=== PATIENT | female | born 1980 | race Caucasian/White ===

== ENCOUNTER 2018-04-24 18:15 | Observation (INO) ==
[2018-04-24] MEDS ORDERED: Isovue-370 500 ML BOTTLE IVP ONE (18:43)
--- NOTE | 2018-04-24 19:07 | Emergency Department Note ---
Disposition Clinical Impression: Dizziness Disposition: Admitted As Inpatient Condition: Fair Referrals: NONE,PCP [Primary Care Provider] - Forms: ED Satisfaction Letter Time of Disposition: 20:20 General Adult HPI - General Chief complaint: ED Dizziness Stated complaint: dizziness Time Seen by Provider: 04/24/18 18:21 Source: patient Limitations: no limitations - History of Present Illness Pain Scale: 0 - Related Data Previous Rx's Medication Instructions Recorded Ondansetron ODT [Zofran ODT] 4 mg SL Q8HR PRN #20 tab.rapdis 05/06/15 Azithromycin [Zithromax] 1 applic PO DAILY #6 tablet 06/25/15 Ondansetron [Zofran ODT] 8 mg SL TID PRN #12 tab.rapdis 06/25/15 ALPRAZolam [Xanax 0.5 MG Tablet] 0.5 mg PO TID PRN #10 tablet 01/23/16 HydrOXYzine Pamoate [Vistaril] 50 mg PO Q6HR #24 capsule 04/30/16 Sulfamethoxazole/Trimeth DS 1 each PO BID 7 Days #14 tablet 11/23/17 [Bactrim DS] cephALEXin [Keflex] 500 mg PO BID #14 capsule 11/23/17 Allergies Allergy/AdvReac Type Severity Reaction Status Date / Time tramadol Allergy See Verified 12/07/17 18:05 Comments acetaminophen [From Percocet] AdvReac Vomiting Verified 12/07/17 18:05 hydrocodone [From Vicodin] AdvReac Vomiting Verified 12/07/17 18:05 oxycodone [From Percocet] AdvReac Vomiting Verified 12/07/17 18:05 Penicillins AdvReac Vomiting Verified 12/07/17 18:05 Past Medical History - Past Medical History Medical history: Reports: CVA, diabetes, other Psychiatric history: Reports: anxiety, panic disorder ENGROSSER history: Reports: polycystic ovary syndrome - Social History Smoking Status: Current every day smoker Smokeless Tobacco Status: No Alcohol use: Reports: none Drug use: Reports: none Physical Exam - General Limitations: no limitations General appearance: alert, in no apparent distress Course Vital Signs Temperature 98.1 F 04/24/18 18:18 Pulse Rate 99 04/24/18 18:18 Respiratory Rate 16 04/24/18 18:18 Blood Pressure 124/78 04/24/18 18:18 O2 Sat by Pulse Oximetry 98 04/24/18 18:18 Temperature 98.1 F 04/24/18 18:18 Pulse Rate 85 04/24/18 19:40 Respiratory Rate 18 04/24/18 19:40 Blood Pressure 133/76 04/24/18 19:40 O2 Sat by Pulse Oximetry 96 04/24/18 19:40 Oxygen Delivery Oxygen Delivery Room Air Medical Decision Making - Lab Data Result diagrams: 04/24/18 19:01 04/24/18 19:01 Lab Results 04/24/18 04/24/18 04/24/18 Range/Units 19:01 19:01 19:01 WBC 13.0 H (4.3-11.1) K/mcL RBC 4.95 (3.82-4.97) M/mcL Hgb 14.7 (11.5-15.4) g/dL Hct 43.2 (35.3-44.9) % MCV 87.3 (83.0-100.0) fL MCH 29.7 (28.0-33.3) pg MCHC 34.0 (31.6-35.5) g/dL RDW 13.4 (11.5-14.5) % Plt Count 347 (140-400) K/mcL MPV 10.9 (9.4-12.4) fL Immature Gran % 0.4 (0-4) % Seg Neutrophils % 60.1 % Lymphocytes % 29.9 % Monocytes % 6.8 % Eosinophils % 2.3 % Basophils % 0.5 % Neutrophils # 7.8 (1.6-8.9) K/mcL Lymphocytes # 3.9 (0.6-4.6) K/mcL Monocytes # 0.9 (0.0-1.3) K/mcL Eosinophils # 0.3 (0.0-0.6) K/mcL Basophils # 0.1 (0.0-0.2) K/mcL VBG pH (7.32-7.42) pH Units VBG pCO2 (41-51) mmHg VBG pO2 (25-50) mmHg VBG HCO3 (21-27) mEq/L Sodium 134 L (136-145) mEq/L Potassium 3.7 (3.5-5.1) mEq/L Chloride 103 (98-107) mEq/L Carbon Dioxide 24 (23-29) mEq/L BUN 10 (6-20) mg/dL Creatinine 0.76 (0.60-1.20) mg/dL Est GFR ( Amer) > 60 (> 60) Est GFR (Non-Af Amer) > 60 (> 60) BUN/Creatinine Ratio 13 (6-26) Glucose 261 H (70-105) mg/dL Calculated Osmolality 286 (280-300) Calcium 9.1 (8.6-10.3) mg/dL Troponin I < 0.03 (< 0.04) ng/mL Beta-Hydroxybutyric Acd 0.16 (0.02-0.27) mmol/L Urine Color (Yellow) Urine Clarity (Clear) Urine pH (5.0-8.0) pH Units Ur Specific [place] (1.010-1.025) Urine Protein (Neg-Trace) mg/dL Urine Glucose (UA) (Normal) mg/dL Urine Ketones (Negative) mg/dL Urine Blood (Negative) Urine Nitrite (Negative) Urine Bilirubin (Negative) Urine Urobilinogen (Normal) mg/dL Ur Leukocyte Esterase (Negative) Ur Culture Indicated? (NO) Urine Test (Negative) 04/24/18 04/24/18 04/24/18 Range/Units 19:26 19:38 19:38 WBC (4.3-11.1) K/mcL RBC (3.82-4.97) M/mcL Hgb (11.5-15.4) g/dL Hct (35.3-44.9) % MCV (83.0-100.0) fL MCH (28.0-33.3) pg MCHC (31.6-35.5) g/dL RDW (11.5-14.5) % Plt Count (140-400) K/mcL MPV (9.4-12.4) fL Immature Gran % (0-4) % Seg Neutrophils % % Lymphocytes % % Monocytes % % Eosinophils % % Basophils % % Neutrophils # (1.6-8.9) K/mcL Lymphocytes # (0.6-4.6) K/mcL Monocytes # (0.0-1.3) K/mcL Eosinophils # (0.0-0.6) K/mcL Basophils # (0.0-0.2) K/mcL VBG pH 7.37 (7.32-7.42) pH Units VBG pCO2 45 (41-51) mmHg VBG pO2 78 H (25-50) mmHg VBG HCO3 26 (21-27) mEq/L Sodium (136-145) mEq/L Potassium (3.5-5.1) mEq/L Chloride (98-107) mEq/L Carbon Dioxide (23-29) mEq/L BUN (6-20) mg/dL Creatinine (0.60-1.20) mg/dL Est GFR ( Amer) (> 60) Est GFR (Non-Af Amer) (> 60) BUN/Creatinine Ratio (6-26) Glucose (70-105) mg/dL Calculated Osmolality (280-300) Calcium (8.6-10.3) mg/dL Troponin I (< 0.04) ng/mL Beta-Hydroxybutyric Acd (0.02-0.27) mmol/L Urine Color Yellow (Yellow) Urine Clarity Clear (Clear) Urine pH 6.0 (5.0-8.0) pH Units Ur Specific [place] > 1.030 H (1.010-1.025) Urine Protein Negative (Neg-Trace) mg/dL Urine Glucose (UA) >=1000 H (Normal) mg/dL Urine Ketones Negative (Negative) mg/dL Urine Blood Negative (Negative) Urine Nitrite Negative (Negative) Urine Bilirubin Negative (Negative) Urine Urobilinogen Normal (Normal) mg/dL Ur Leukocyte Esterase Negative (Negative) Ur Culture Indicated? NO (NO) Urine Test Negative (Negative) Attestation Statement - Attestation Attestation: I, Bharath Carrillo DO, examined this patient [id number] and my medical decision-making was reviewed with Dr. Daniela Capps, Resident Physician. I agree with the documented findings, disposition and treatment plan as described except to the extent set forth below. Please see my progress notes for details. 37-year-old female presents emergency room for evaluation of dizziness. Patient has had these symptoms for possibly 7 days. Patient does have a history of a previous cerebellar stroke multiple years ago. Patient denies any new changes or symptoms at this time. The onset of the dizziness came on acutely at home. She denies any chest pain, shortness breath, headache, vision changes. Denies any nausea vomiting or diarrhea. Her main complaint is dizziness at this time. Vital signs are reviewed and are stable on presentation. Symptoms make the patient will outside the window of stroke evaluation at this point. She does not have any visible signs of ataxia with ambulation but she does have the describes symptoms of dizziness. Physical exam shows a well-appearing female. Head is atraumatic. Pupils are equal round reactive. Extra ocular muscles are intact. Oropharynx is patent. Trachea is midline. Lungs are clear. Heart is regular. Abdomen is soft. Neurologic evaluation shows no signs of facial asymmetry. She has no signs of double vision or diplopia at this time. Pupils are reactive. She has normal sensation in the upper and lower extremities. No visible signs of cerebellar dysfunction on physical exam at this point. Because of the symptom presentation the time frame the patient will have CT imaging of the head and the neck with angiography. Labs including CBC chemistry beta hydroxybutyric acid VBG will be added on as well considering the patient has poor controlled diabetic. Fluids nausea medication meclizine will be given. Urinalysis and urine test be collected as well. Disposition pending full workup and treatment course. Symptoms could be cerebellar in nature versus possible diabetic-related issue causing the dizziness. Symptomatic control will be established. Patient will monitor closely. See detailed documentation of the physical exam, medical intervention, medical decision-making and disposition in the resident physician's note. No critical care pad the patient's treatment course at this time. 1999 CT angiography confirms previous cerebellar stroke. No vascular significant lesion is noted. Patient is otherwise clinically stable. Symptoms have not resolved with the meclizine here this time. Labs otherwise unremarkable. Patient will be admitted for MRI evaluation and further symptomatic control with the neurology. Ativan was given secondary to anxiety. Accu-Chek was elevated 300. Labs do not show any acute signs of diabetic ketoacidosis. Hospitalist reviewed the case at length. No other acute recommendations or concerns this time. Patient will be admitted for symptomatically control and continue neur ologic evaluation.
[2018-04-24 19:21] LABS: Basophils # 0.1 K/mcL (0.0-0.2); Basophils % 0.5 %; Eosinophils # 0.3 K/mcL (0.0-0.6); Eosinophils % 2.3 %; Hematocrit 43.2 % (35.3-44.9); Hemoglobin 14.7 g/dL (11.5-15.4); Immature Granulocytes % 0.4 % (0-4); Lymphocytes # 3.9 K/mcL (0.6-4.6); Lymphocytes % 29.9 %; Mean Corpuscular Hemoglobin 29.7 pg (28.0-33.3); Mean Corpuscular Volume 87.3 fL (83.0-100.0); Mean Platelet Volume 10.9 fL (9.4-12.4); Monocytes # 0.9 K/mcL (0.0-1.3); Monocytes % 6.8 %; Neutrophils # 7.8 K/mcL (1.6-8.9); Platelet Count 347 K/mcL (140-400); Red Blood Count 4.95 M/mcL (3.82-4.97); Red Cell Distribution Width 13.4 % (11.5-14.5); Segmented Neutrophils % 60.1 %
[2018-04-24 19:31] LABS: VBG HCO3 26 mEq/L (21-27); VBG PCO2 45 mmHg (41-51); VBG PH 7.37 pH Units (7.32-7.42); VBG PO2 78 mmHg (25-50)
[2018-04-24 19:42] LABS: BUN/Creatinine Ratio 13 (6-26); Blood Urea Nitrogen 10 mg/dL (6-20); Calcium 9.1 mg/dL (8.6-10.3); Carbon Dioxide 24 mEq/L (23-29); Chloride 103 mEq/L (98-107); Glucose 261 mg/dL (70-105); Osmolality,Calculated 286 (280-300); Potassium 3.7 mEq/L (3.5-5.1); Sodium 134 mEq/L (136-145); Troponin I < 0.03 ng/mL (< 0.04); eGFR For Non-African Americans > 60 (> 60)
[2018-04-24 19:58] LABS: Bilirubin,Urine Negative (Negative); Blood,Urine Negative (Negative); Clarity,Urine Clear (Clear); Color,Urine Yellow (Yellow); Glucose,Urine (UA) >=1000 mg/dL (Normal); Ketones,Urine Negative (Negative); Leukocyte Esterase,Urine Negative (Negative); Nitrite,Urine Negative (Negative); Protein,Urine Negative (Neg-Trace); Specific Gravity,Urine > 1.030 (1.010-1.025); Urobilinogen,Urine Normal (Normal)
[2018-04-24] MEDS ORDERED: *HR* LORazepam 2 MG/ML VIAL IVP ONE (20:01)
--- NOTE | 2018-04-24 20:13 | Emergency Department Note ---
Disposition Clinical Impression: Dizziness Disposition: Admitted As Inpatient Condition: Fair Referrals: NONE,PCP [Primary Care Provider] - Forms: ED Satisfaction Letter Time of Disposition: 20:40 General Adult HPI - General Chief complaint: ED Dizziness Stated complaint: dizziness Time Seen by Provider: 04/24/18 18:21 Source: patient Mode of arrival: ambulatory Limitations: no limitations Nursing Notes Reviewed: Yes Vital Signs Reviewed: Yes - History of Present Illness HPI Narrative: 37-year-old female with significant past medical history of type 2 diabetes and previous stroke currently taking a daily aspirin presenting to the emergency department chief complaint of dizziness. Patient states symptoms started approximately 1 week ago. No falls or head trauma. He denies any headache, chest pain, shortness of breath or abdominal pain. She states the symptoms started with some vague dizziness on and off. And then over the past 2 days she started having worsening dizziness and blurred vision. Patient was concerned s he had a previous stroke and her only symptom at that time was dizziness. Patient denies any weakness or loss of sensation in any extremity. Pain Scale: 0 - Related Data Previous Rx's Medication Instructions Recorded Ondansetron ODT [Zofran ODT] 4 mg SL Q8HR PRN #20 tab.rapdis 05/06/15 Azithromycin [Zithromax] 1 applic PO DAILY #6 tablet 06/25/15 Ondansetron [Zofran ODT] 8 mg SL TID PRN #12 tab.rapdis 06/25/15 ALPRAZolam [Xanax 0.5 MG Tablet] 0.5 mg PO TID PRN #10 tablet 01/23/16 HydrOXYzine Pamoate [Vistaril] 50 mg PO Q6HR #24 capsule 04/30/16 Sulfamethoxazole/Trimeth DS 1 each PO BID 7 Days #14 tablet 11/23/17 [Bactrim DS] cephALEXin [Keflex] 500 mg PO BID #14 capsule 11/23/17 Allergies Allergy/AdvReac Type Severity Reaction Status Date / Time tramadol Allergy See Verified 12/07/17 18:05 Comments acetaminophen [From Percocet] AdvReac Vomiting Verified 12/07/17 18:05 hydrocodone [From Vicodin] AdvReac Vomiting Verified 12/07/17 18:05 oxycodone [From Percocet] AdvReac Vomiting Verified 12/07/17 18:05 Penicillins AdvReac Vomiting Verified 12/07/17 18:05 All systems ED: reviewed and negative except as stated. Constitutional: Denies: fever Eyes: Reports: vision change ENT ED: Reports: as per HPI Cardiovascular: Reports: palpitations Respiratory: Denies: dyspnea Gastrointestinal: Denies: abdominal pain Genitourinary: Reports: as per HPI Musculoskeletal: Reports: as per HPI Integumentary: Reports: as per HPI Neurological: Reports: vertigo Psychiatric: Reports: anxiety Endocrine: Reports: as per HPI Hematological/Lymphatic: Reports: as per HPI Allergic/Immunologic: Reports: as per HPI Past Medical History - Past Medical History Attestation: Yes The following information was validated with the patient. Medical history: Reports: CVA, diabetes, other Psychiatric history: Reports: anxiety, panic disorder PEGGER history: Reports: polycystic ovary syndrome - Social History Smoking Status: Current every day smoker Smokeless Tobacco Status: No Alcohol use: Reports: none Drug use: Reports: none Physical Exam - General Limitations: no limitations General appearance: alert, in no apparent distress - Head Head exam: atraumatic, normocephalic, normal inspection - Eye Eye exam: Present: EOMI, nystagmus (right sided). Absent: scleral icterus, conjunctival injection - ENT ENT exam: mucous membranes moist - Neck Neck exam: Present: full ROM - Chest Chest inspection: Present: symmetric chest wall rise - Respiratory Respiratory exam: Present: normal lung sounds bilaterally. Absent: respiratory distress, wheezes - Cardiovascular Cardiovascular exam: Present: regular rate, normal rhythm, normal heart sounds - Abdominal Exam Abdominal exam: Present: soft, Non-Tender. Absent: distention, guarding, rebound - Extremities Exam Extremities exam: Present: full ROM - Neurological Exam Neurological exam: Present: alert, oriented X3, other (finger to nose WNL). Absent: motor sensory deficit - Psychiatric Psychiatric exam: Present: normal affect, normal mood - Skin Skin exam: Present: warm, intact Course Course Narrative: 37-year-old female presenting with dizziness. In the room patient is alert and oriented 3 and hemodynamically stable. Patient's symptoms have been for approximately 1 week therefore patient out of stroke window at this time. On exam patient has right-sided horizontal nystagmus but her finger to nose is within normal limits. We will obtain a CTA of the head and neck along with basic laboratory analysis. Patient also stated she was not taking any of her diabetes medications therefore we will also obtain a VBG and a beta hydroxybutyric acid to rule out DKA. Disposition will most likely be admission versus transfer pending evaluation. Patient agrees with this plan. - Reevaluation(s) Reevaluation #1: Patient's laboratory analysis shows hyperglycemia but otherwise within normal limits. Urine does not show any infection. CTA of the head and neck shows a remote infarct of the right cerebellar exam. Due to patient's continued dizziness and concern for stroke we will plan to admit the patient for further evaluation. Patient is alert and oriented 3 and hemodynamically stable. She agrees with this plan. I spoke with the hospitalist operations mgr Dr. Osman who states he would like me to talk to neurology before he accepts the patient. I spoke with the neurologist operations mgr Dr. Burns who agrees to consult on the patient and agrees that the patient is acceptable for this facility. At this time patient will be admitted to the hospitalist. Vital Signs Temperature 98.1 F 04/24/18 18:18 Pulse Rate 99 04/24/18 18:18 Respiratory Rate 16 04/24/18 18:18 Blood Pressure 124/78 04/24/18 18:18 O2 Sat by Pulse Oximetry 98 04/24/18 18:18 Temperature 98.1 F 04/24/18 18:18 Pulse Rate 86 04/24/18 20:15 Respiratory Rate 14 04/24/18 20:15 Blood Pressure 128/90 04/24/18 20:15 O2 Sat by Pulse Oximetry 100 04/24/18 20:15 Oxygen Delivery Oxygen Delivery Room Air Medical Decision Making - Lab Data Result diagrams: 04/24/18 19:01 04/24/18 19:01 Lab Results 04/24/18 04/24/18 04/24/18 Range/Units 19:01 19:01 19:01 WBC 13.0 H (4.3-11.1) K/mcL RBC 4.95 (3.82-4.97) M/mcL Hgb 14.7 (11.5-15.4) g/dL Hct 43.2 (35.3-44.9) % MCV 87.3 (83.0-100.0) fL MCH 29.7 (28.0-33.3) pg MCHC 34.0 (31.6-35.5) g/dL RDW 13.4 (11.5-14.5) % Plt Count 347 (140-400) K/mcL MPV 10.9 (9.4-12.4) fL Immature Gran % 0.4 (0-4) % Seg Neutrophils % 60.1 % Lymphocytes % 29.9 % Monocytes % 6.8 % Eosinophils % 2.3 % Basophils % 0.5 % Neutrophils # 7.8 (1.6-8.9) K/mcL Lymphocytes # 3.9 (0.6-4.6) K/mcL Monocytes # 0.9 (0.0-1.3) K/mcL Eosinophils # 0.3 (0.0-0.6) K/mcL Basophils # 0.1 (0.0-0.2) K/mcL VBG pH (7.32-7.42) pH Units VBG pCO2 (41-51) mmHg VBG pO2 (25-50) mmHg VBG HCO3 (21-27) mEq/L Sodium 134 L (136-145) mEq/L Potassium 3.7 (3.5-5.1) mEq/L Chloride 103 (98-107) mEq/L Carbon Dioxide 24 (23-29) mEq/L BUN 10 (6-20) mg/dL Creatinine 0.76 (0.60-1.20) mg/dL Est GFR ( Amer) > 60 (> 60) Est GFR (Non-Af Amer) > 60 (> 60) BUN/Creatinine Ratio 13 (6-26) Glucose 261 H (70-105) mg/dL Calculated Osmolality 286 (280-300) Calcium 9.1 (8.6-10.3) mg/dL Troponin I < 0.03 (< 0.04) ng/mL Beta-Hydroxybutyric Acd 0.16 (0.02-0.27) mmol/L Urine Color (Yellow) Urine Clarity (Clear) Urine pH (5.0-8.0) pH Units Ur Specific [place] (1.010-1.025) Urine Protein (Neg-Trace) mg/dL Urine Glucose (UA) (Normal) mg/dL Urine Ketones (Negative) mg/dL Urine Blood (Negative) Urine Nitrite (Negative) Urine Bilirubin (Negative) Urine Urobilinogen (Normal) mg/dL Ur Leukocyte Esterase (Negative) Ur Culture Indicated? (NO) Urine Test (Negative) 04/24/18 04/24/18 04/24/18 Range/Units 19:26 19:38 19:38 WBC (4.3-11.1) K/mcL RBC (3.82-4.97) M/mcL Hgb (11.5-15.4) g/dL Hct (35.3-44.9) % MCV (83.0-100.0) fL MCH (28.0-33.3) pg MCHC (31.6-35.5) g/dL RDW (11.5-14.5) % Plt Count (140-400) K/mcL MPV (9.4-12.4) fL Immature Gran % (0-4) % Seg Neutrophils % % Lymphocytes % % Monocytes % % Eosinophils % % Basophils % % Neutrophils # (1.6-8.9) K/mcL Lymphocytes # (0.6-4.6) K/mcL Monocytes # (0.0-1.3) K/mcL Eosinophils # (0.0-0.6) K/mcL Basophils # (0.0-0.2) K/mcL VBG pH 7.37 (7.32-7.42) pH Units VBG pCO2 45 (41-51) mmHg VBG pO2 78 H (25-50) mmHg VBG HCO3 26 (21-27) mEq/L Sodium (136-145) mEq/L Potassium (3.5-5.1) mEq/L Chloride (98-107) mEq/L Carbon Dioxide (23-29) mEq/L BUN (6-20) mg/dL Creatinine (0.60-1.20) mg/dL Est GFR ( Amer) (> 60) Est GFR (Non-Af Amer) (> 60) BUN/Creatinine Ratio (6-26) Glucose (70-105) mg/dL Calculated Osmolality (280-300) Calcium (8.6-10.3) mg/dL Troponin I (< 0.04) ng/mL Beta-Hydroxybutyric Acd (0.02-0.27) mmol/L Urine Color Yellow (Yellow) Urine Clarity Clear (Clear) Urine pH 6.0 (5.0-8.0) pH Units Ur Specific [place] > 1.030 H (1.010-1.025) Urine Protein Negative (Neg-Trace) mg/dL Urine Glucose (UA) >=1000 H (Normal) mg/dL Urine Ketones Negative (Negative) mg/dL Urine Blood Negative (Negative) Urine Nitrite Negative (Negative) Urine Bilirubin Negative (Negative) Urine Urobilinogen Normal (Normal) mg/dL Ur Leukocyte Esterase Negative (Negative) Ur Culture Indicated? NO (NO) Urine Test Negative (Negative) - EKG Data EKG #1 EKG attestation: Yes I reviewed and interpreted this EKG. EKG results narrative: Sinus rhythm. 87 beats for minute. [place] interval 155, QRS 96, QTC 433. No sign of acute ST segment elevation or ischemia. Compared to previous EKG completed on 04/29/2017. No Significant changes Attestation Statement - Attestation Attestation: I, Bharath Carrillo DO, examined this patient [id number] and my medical decision-making was reviewed with Dr. Daniela Capps, Resident Physician. I agree with the documented findings, disposition and treatment plan as described except to the extent set forth below. Please see my progress notes for details.
[2018-04-24] MEDS ORDERED: Dextrose Gel 15 GM/37.5 ML TUBE PO PRN ×2 (23:28)
[2018-04-24] MEDS ORDERED: *HR* Dextrose 50 % in Water (Syg) 50 ML SYRINGE IVP PRN (23:28)
[2018-04-24] MEDS ORDERED: D5% in Water 1,000 ML IVC PRN (23:28)
[2018-04-24] MEDS ORDERED: Naloxone 0.4 MG/ML INJ IVP PRN (23:28)
[2018-04-24] MEDS ORDERED: hydrOXYzine pamoate 25 MG CAPSULE PO PRN (23:37)
[2018-04-25] MEDS: 0.9 % Sodium Chloride w KCl 20 MEQ/1,000 ML MLS IVC SCH ×2 (00:18→11:47)
--- NOTE | 2018-04-25 00:59 | Internal Med History&Physical ---
Date of Encounter: 04/24/18 Time of Encounter: 23:10 Internal Medicine - H&P: HPI Chief complaint: dizziness; ataxia Admitted From: Emergency Dept Plans for Post Hospital Care: Home History of present illness: Ms. Aguila is a 37 year old female who presents to the ER [facility] with complaints of acute onset of dizziness and ataxia. Symptoms started roughly 6-7 days ago. She initially thought this was due to her anxiety and was hopeful that symptoms would resolve. However, symptoms persisted and so she came to ER for further evaluation. Workup in ER was negative including CTA of the head and neck and CT the head. However, she does have history of an old cerebellar stroke, and she did state that her symptoms were similar to her stroke 3 years ago. She was therefore admitted to hospitalist service. I received a call from the ER staff regarding the request for admission. I asked the ER staff to contact neurology and discuss the case with them before I accepted the patient, especially given her history of cerebellar stroke. Neurology was in agreement, and I subsequently accepted the patient for admission. Upon my assessment of the patient, she confirms the above history. However, she states these symptoms are not nearly as severe as they were when she first had her stroke in 2014. She does suffer from anxiety and firmly believes her symptoms were anxiety in nature this current episode. However, symptoms did not improve and persisted, and she then became worried about further extension of an old stroke. She therefore came to the hospital [facility]. She is type II diabetic but has not been any medication for quite some time due to lack of insurance coverage and inability to afford her medication. He glucose in the ER was 261. She denies any hypoglycemic episodes. Upon further questioning, patient states she has had 3 prior episodes of DVT several years ago. Last one was about 5 years ago. Furthermore, her father had recurrent strokes as well. She also smokes. As such, she has multiple risk factors for strokes. I inquired about her DVT history and if she has ever had any kind of hypercoagulable workup. She has never seen a manager pacu in consultation and denies any prior hypercoagulable workup. Regarding her cerebellar stroke, she was life-flighted from our ER to [facility] in [place] in 2014 when that occurred. She does not recall much of that hospital stay. Past Med Surg Social Fam HX - Past Medical History Attestation: Yes The following information was validated with the patient. Source: patient, old records reviewed, obtained from family Medical history: CVA, diabetes Additional medical history: 2015 -- cerebellar stroke. DVT x 3 Psychiatric history: anxiety, panic disorder - Past Surgical History Surgical History: orthopedic, other (carpal tunnel) Additional surgical history: carpal tunnel bilateral. D&C - Social History Smoking Status: Current every day smoker Packs per day: 2 Smokeless Tobacco Status: No Alcohol use: none Drug use: none Occupational status: employed Current living situation: Home, With Family Activity Level: Independent ambulation Recent Out of Country Travel Within the Last 8 Weeks: No - Family History Paternal Grandfather Living Status: Cause of : [place] Hx Family Cardiac Disorders: Yes ([place]) Father Hx Family Cardiac Disorders: Yes (CABG X4) Hx Family Neurologic Disorders: Yes (multiple CVAs) Hx Family Medical Disorders: Yes (DM) Paternal Grandmother Hx Family Medical Disorders: Yes (DM) Internal Medicine - H&P: Meds Aspirin [Lo-Dose Aspirin EC] 81 mg PO DAILY 04/24/18 [History] HydrOXYzine Pamoate [Vistaril] 100 mg PO Q6HR PRN 04/24/18 [History] Allergy/AdvReac Type Severity Reaction Status Date / Time tramadol Allergy See Verified 12/07/17 18:05 Comments acetaminophen [From Percocet] AdvReac Vomiting Verified 12/07/17 18:05 hydrocodone [From Vicodin] AdvReac Vomiting Verified 12/07/17 18:05 oxycodone [From Percocet] AdvReac Vomiting Verified 12/07/17 18:05 Penicillins AdvReac Vomiting Verified 12/07/17 18:05 - Constitutional Constitutional: no chills, no fever(s), no falls, no night sweats - EENT Eyes: no blurry vision, no change in vision Ears: no ear pain, no tinnitus Nose, mouth and throat: no nasal congestion, no sore throat - Cardiovascular Cardiovascular ROS IM: no chest pain, no dyspnea, no dyspnea on exertion, no irregular heart rhythm, no lightheadedness, no paroxysmal nocturnal dyspnea, no syncope - Respiratory Respiratory: no cough, no hemoptysis, no chest congestion, no excessive phlegm production, no change in phlegm color - Gastrointestinal Gastrointestinal: no abdominal pain, no diarrhea, no hematemesis, no hematochezia, no melena, no nausea, no vomiting - Genitourinary Genitourinary: no dysuria, no flank pain, no hematuria - Musculoskeletal Musculoskeletal ROS IM: no arthralgias, no back pain - Integumentary Integumentary IM: no rash, no jaundice - Neurological Neurological ROS: abnormal gait, dizziness, no abnormal speech, no convulsions, no focal weakness, no frequent falls, no headache(s), no numbness, no paresthesias - Psychiatric Psychiatric: anxiety, no depression - Endocrine Endocrine IM: no cold intolerance, no heat intolerance, no polydipsia, no polyuria - Hematologic/Lymphatic Hematologic/Lymphatic: no lymphadenopathy - Allergic/Immunologic Allergic/Immunologic: no GI upset with certain foods - Constitutional Vitals: Temp Pulse Resp BP Pulse Ox 98.2 F 82 16 113/73 95 04/24/18 21:23 04/24/18 21:23 04/24/18 21:23 04/24/18 21:23 04/24/18 21:23 General appearance: Present: cooperative, A&O X 3, pleasant, no acute distress, answers questions appropriately Exam: see below - Head Head exam: Present: atraumatic, normal inspection - Eye Eye exam: Present: EOMI, PERRL. Absent: scleral icterus Pupils: Present: normal accommodation - ENT ENT exam: Present: mucous membranes moist, normal exam, normal oropharynx - Neck Neck exam general surgery: Present: full ROM, supple. Absent: tenderness, nuchal rigidity, thyromegaly - Expanded Neck Exam Neck exam: Absent: carotid bruit - Respiratory Respiratory exam: Present: CTAB. Absent: chest wall tenderness, rales, rhonchi, wheezes - Cardiovascular Cardiovascular exam: Present: RRR, +S1, +S2. Absent: diastolic murmur, systolic murmur - GI/Abdominal GI/Abdominal exam: Present: normal bowel sounds, soft. Absent: hepatomegaly, mass, splenomegaly, tenderness - Extremities Exam Extremities exam: Present: full ROM, normal capillary refill, normal inspection, warm, radial pulses palpable and symmetrical. Absent: calf tenderness, pedal edema, tenderness - Back Exam Back exam: Present: normal inspection. Absent: CVA tenderness (L), CVA tenderness (R) - Neurological Exam Neurological exam: Present: alert, CN II-XII intact, oriented X3, no focal deficits. Absent: facial droop, speech deficit Additional comments: no nystagmus or dizziness reproduced with position changes; normal finger to nose testing - Psychiatric Psychiatric exam: Present: anxious (minimally), normal affect, normal mood. Absent: depressed - Skin Skin exam: Present: dry, intact, warm. Absent: rash Internal Med - H&P Results - Labs CBC & Chem 7: 04/24/18 19:01 04/24/18 19:01 Labs: Short CBC 04/24/18 Range/Units 19:01 WBC 13.0 H (4.3-11.1) K/mcL Hgb 14.7 (11.5-15.4) g/dL Hct 43.2 (35.3-44.9) % Plt Count 347 (140-400) K/mcL Neutrophils # 7.8 (1.6-8.9) K/mcL BMP 04/24/18 19:01 Sodium 134 L Potassium 3.7 Chloride 103 Carbon Dioxide 24 BUN 10 Creatinine 0.76 Glucose 261 H Calcium 9.1 Cardiac Enzymes 04/24/18 Range/Units 19:01 Troponin I < 0.03 (< 0.04) ng/mL Urine 04/24/18 Range/Units 19:38 Urine Color Yellow (Yellow) Urine Clarity Clear (Clear) Urine pH 6.0 (5.0-8.0) pH Units Ur Specific [place] > 1.030 H (1.010-1.025) Urine Protein Negative (Neg-Trace) mg/dL Urine Glucose (UA) >=1000 H (Normal) mg/dL - ABG Interpretation ABG results: 04/24/18 19:26 VBG pH 7.37 VBG pCO2 45 VBG pO2 78 H VBG HCO3 26 - EKG Data -: EKG Interpreted by Myself - EKG Data Prior EKG available for review: no EKG comments: 04/25/18 01:05 NSR; no acute changes - Impressions ITS Impressions Angiography CT 04/24/18 18:43 IMPRESSION: No acute intracranial abnormality. Stable old infarction in the right cerebellar hemisphere. No evidence of acute abnormality or flow-limiting stenosis in the major arteries of the head and neck. Artifacts through the mid to distal right common internal carotid artery. D/ / Devonte Fisher MD / Devonte Fisher MD Interpreting Provider: Devonte Fisher MD Neck CTA 04/24/18 18:43 IMPRESSION: No acute intracranial abnormality. Stable old infarction in the right cerebellar hemisphere. No evidence of acute abnormality or flow-limiting stenosis in the major arteries of the head and neck. Artifacts through the mid to distal right common internal carotid artery. D/ / Devonte Fisher MD / Devonte Fisher MD Interpreting Provider: Devonte Fisher MD - Assessment and plan (1) Dizziness Current Visit: Yes Status: Acute Assessment and plan: 1. Exam and work-up thus far negative. 2. Will complete stroke work-up with MRI, ECHO, and neurology consult. 3. Start Statin, continue ASA. 4. Given history of DVT, needs hypercoagulable work-up. 5. Smoking cessation advised. (2) Old cerebellar infarct without late effect Current Visit: Yes Status: Chronic Assessment and plan: 1. 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 2. Current symptoms concerning. 3. Work-up as above. (3) Recurrent deep vein thrombosis (DVT) Current Visit: Yes Status: Chronic Assessment and plan: 1. Smoking cessation advised. 2. Consult HEM/ONC for hypercoagulable work-up and follow up. 3. 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 (4) Type 2 diabetes mellitus Current Visit: Yes Status: Chronic Assessment and plan: 1. Will start on SSI and monitor glucose closely. 2. Likely start oral regimen upon discharge. Qualifiers: Diabetes mellitus longterm insulin use: without longterm use Diabetes mellitus complication status: without complication Qualified Code(s): E11.9 - Type 2 diabetes mellitus without complications (5) DVT prophylaxis Current Visit: Yes Status: Acute Assessment and plan: 1. Heparin SQ.
[2018-04-25 04:55] LABS: Basophils # 0.1 K/mcL (0.0-0.2); Basophils % 0.6 %; Eosinophils # 0.3 K/mcL (0.0-0.6); Eosinophils % 2.5 %; Hematocrit 43.2 % (35.3-44.9); Hemoglobin 14.5 g/dL (11.5-15.4); Immature Granulocytes % 0.3 % (0-4); Lymphocytes # 4.2 K/mcL (0.6-4.6); Lymphocytes % 40.4 %; Mean Corpuscular HGB Conc 33.6 g/dL (31.6-35.5); Mean Corpuscular Hemoglobin 29.4 pg (28.0-33.3); Mean Corpuscular Volume 87.6 fL (83.0-100.0); Mean Platelet Volume 10.8 fL (9.4-12.4); Monocytes # 0.8 K/mcL (0.0-1.3); Monocytes % 7.4 %; Platelet Count 329 K/mcL (140-400); Red Blood Count 4.93 M/mcL (3.82-4.97); Red Cell Distribution Width 13.4 % (11.5-14.5); Segmented Neutrophils % 48.8 %
[2018-04-25 05:01] LABS: Prothrombin Time 11.4 Seconds (9.4-12.1)
[2018-04-25 05:04] LABS: Activated Partial Thrombo Time 33.5 Seconds (26.0-36.0)
[2018-04-25 05:12] LABS: Alanine Aminotransferase 10 Units/L (7-52); Albumin 3.8 g/dL (3.5-5.7); Albumin/Globulin Ratio 1.5 (1.1-2.2); Alkaline Phosphatase 65 Units/L (34-104); Aspartate Amino Transferase 11 Units/L (13-39); BUN/Creatinine Ratio 13 (6-26); Bilirubin,Total 0.4 mg/dL (0.3-1.0); Blood Urea Nitrogen 9 mg/dL (6-20); Calcium 8.9 mg/dL (8.6-10.3); Carbon Dioxide 23 mEq/L (23-29); Chloride 106 mEq/L (98-107); Chol/HDL Ratio 4.8 (0-4.9); Cholesterol 144 mg/dL (< 200); Globulin 2.6 g/dL (2.4-3.5); Glucose 149 mg/dL (70-105); HDL Cholesterol 30 mg/dL (40-59); LDL Cholesterol,Calculated 84 mg/dL (0-99); Osmolality,Calculated 283 (280-300); Potassium 4.1 mEq/L (3.5-5.1); Sodium 136 mEq/L (136-145); Total Protein 6.4 g/dL (6.4-8.9); Triglycerides 152 mg/dL (< 150); eGFR For Non-African Americans > 60 (> 60)
[2018-04-25] MEDS: *HR* Heparin 5,000 UNIT/ML VIAL SQ SCH ×2 (05:47→16:52)
[2018-04-25] MEDS: Aspirin Enteric Coated 81 MG Tablet PO SCH (09:05)
[2018-04-25] MEDS: Insulin LISPRO 300 UNITS/3 ML VIAL SQ SCH ×3 (09:12→16:52)
--- NOTE | 2018-04-25 11:08 | Neurology - Consult Note ---
Date of Encounter: 04/25/18 Time of Encounter: 10:54 Assessment and Plan (1) Dizziness Current Visit: Yes Status: Acute Patient has been experiencing spells of dizziness, SOB, leg weakness, sense of losing balance that has been recurrent, but chronic in nature, acutely worsened in the last 6-7 days but her neurological examination showed no significant focal neurological deficits. In particular there is no nystagmus and there is no significant ataxia. They are distinctly different than vertigo and different than symptoms at the time of her previous stroke. She does have history of anxiety and the spells had responded to the use of hydroxyzine in the past Overall speaking i do not feel that the spells are secondary to a neurological disorder but agree that she needs MRI of brain to rule out stroke due to her history of stroke and anxiety factor involved. CTA of neck and brain showed no significant abnormality. CT of head showed old right cerebellar infarct. I reviewed the images personally and i agree with the findings. She is to continue Aspirin 81mg daily. She has not been compliant with CPAP therapy and she is advised to be compliant with it. She is a smoker and may have hypoxemia related to that and janny defer to medical team for proper management. She may have BPPV although these are not exactly vertiginous feeling if MRI of brain returns negative for infarct then she may benefit from outpatient ENT evaluation for possible vestibular dysfunction, including hearing test and VNG testing. She has right parotid gland mass and small growth at the back of her external ear but this should not cause dizziness. Other causes would include cardiac arrhythmia and medical condition and would defer to medical team for proper monitoring and work up. Will follow up once MRI of brain is complete. History of Present Illness Chief complaint: dizziness HPI: Ms. Aguila is a 37 year old female with PMH significant for previous cerebellar infarct (06/2014), JESUS on CPAP, chronic anxiety, right parotid gland mass who developed acute onset of persistent dizziness, leg weakness and balance difficulty. Patient states that during 06/2014 she developed acute onset of d izziness, described as room spinning sensation and she loss control of her balance and she went to ER here at [facility] and MRI of brain in the ER showed acute right cerebellar hemispheric infarct and she was transferred to [facility] in [facility]. there, she was apparently underwent conservative treatment was eventually discharged home with aspirin. No definitive cause of the stroke was identified. The stroke was within the right PICA territory. She undergone rapid improvement after the stroke and 5-6 days after the onset of her stroke she was able to walk and experienced no dizziness. She essentially totally recovered without neurological deficits. Then after the stroke incidence she started experiencing what she called anxiety spells where she would feel dizzy, lightheaded and a sense that she is going to pass out and that her legs are weak and going to give out on her. The spells are recurrent and episodic and last 15 minutes in duration and she was given hydroxyzine prn and it usually helps her anxiety spells. However, about 6-7 days ago she started feeling the spells but they keep coming and won't go away therefore she was concerned. She describes a dizzy feeling, legs are weak, some tinnitus to the ears sense of losing her balance but she is not nauseated. The feeling is persistent and even when she is in sitting position she feels the symptoms. This morning she was able to walk to the bathroom. at the time of this interview, she has no nystagmus that i can identify. She does not appear to be in any acute distress though. She has diagnosis of sleep apnea and she is a smoker. She reports feelings of shortness of breath and lack of oxygen. Initial CT of head was reported no acute intracranial abnormality. Past Med Surg Social Fam HX - Past Medical History Medical history: CVA, diabetes Additional medical history: 2014 -- cerebellar stroke. DVT x 3 Psychiatric history: anxiety, panic disorder - Past Surgical History Surgical History: orthopedic, other (carpal tunnel) Additional surgical history: carpal tunnel bilateral. D&C - Social History Smoking Status: Current every day smoker Packs per day: 2 Smokeless Tobacco Status: No Alcohol use: none Drug use: none - Family History Paternal Grandfather Living Status: Cause of : [place] Hx Family Cardiac Disorders: Yes ([place]) Father Hx Family Cardiac Disorders: Yes (CABG X4) Hx Family Neurologic Disorders: Yes (multiple CVAs) Hx Family Medical Disorders: Yes (DM) Paternal Grandmother Hx Family Medical Disorders: Yes (DM) Medications and Allergies Aspirin [Lo-Dose Aspirin EC] 81 mg PO DAILY 04/24/18 [History] HydrOXYzine Pamoate [Vistaril] 100 mg PO Q6HR PRN 04/24/18 [History] Allergy/AdvReac Type Severity Reaction Status Date / Time tramadol Allergy See Verified 12/07/17 18:05 Comments acetaminophen [From Percocet] AdvReac Vomiting Verified 12/07/17 18:05 hydrocodone [From Vicodin] AdvReac Vomiting Verified 12/07/17 18:05 oxycodone [From Percocet] AdvReac Vomiting Verified 12/07/17 18:05 Penicillins AdvReac Vomiting Verified 12/07/17 18:05 All Systems: The remainder of the systems were reviewed and are negative Physical Examination - Vital Signs Vital Signs: Initial Vital Signs Temp Pulse Resp BP Pulse Ox 98.1 F 99 16 124/78 98 04/24/18 18:18 04/24/18 18:18 04/24/18 18:18 04/24/18 18:18 04/24/18 18:18 - Constitutional General appearance: comfortable - Neurologic Detailed motor examination: full strength in all major muscle groups Motor examination - right side: 5/5: deltoids, biceps, triceps, wrist flexion, wrist extension, stretching machine tender frame, hip flexors, tibialis Anterior, quadriceps, toe extension (EHL), plantarflexion Motor examination - left side: 5/5: deltoids, biceps, triceps, wrist flexion, wrist extension, hip flexors, stretching machine tender frame, quadriceps, tibialis Anterior, toe extension (EHL), plantarflexion Detailed sensory examination: intact Posture: other (NOne) Reflex and gait examination: intact Reflexes: Biceps: 2+, Triceps: 2+, Brachioradialis: 2+, Patella: 2+, Achilles: 2+ Mental Status Examination: awake, alert, oriented to person, oriented to place, oriented to time, follows commands appropriately, answers questions appropriately, no agnosia, no aphasia, no aproxia Cranial nerve examination: PERRL, EOMI, visual feliz intact, corneal reflexes brisk symmetrically, sensory to face intact, mastication intact, no facial asymmetry is present, no dysarthria, hearing is intact symmetrically, soft palate elevates bilaterally upon phonation, gag reflex intact, flexes SCM and trapezius muscles symmetrically with full power, tongue protrudes midline, no atrophy or facial fasiculations present Cerebellar examination: no dysmetria, performs finger to nose and heel to lion symmetrically without ataxia, no gait ataxia, no truncal ataxia, no difficulty with rapid alternating movements Results - Laboratory Findings CBC and BMP: 04/25/18 04:32 04/25/18 04:32 Abnormal lab findings: Abnormal lab results VBG pO2 78 mmHg (25-50) H 04/24/18 19:26 Glucose 149 mg/dL (70-105) H 04/25/18 04:32 POC Glucose 198 mg/dL (70-99) H 04/24/18 21:49 AST 11 Units/L (13-39) L 04/25/18 04:32 Triglycerides 152 mg/dL (< 150) H 04/25/18 04:32 HDL Cholesterol 30 mg/dL (40-59) L 04/25/18 04:32 Ur Specific [place] > 1.030 (1.010-1.025) H 04/24/18 19:38 Urine Glucose (UA) >=1000 mg/dL (Normal) H 04/24/18 19:38 - Diagnostic Findings Additional findings: CTA OF THE NECK; CTA OF THE HEAD WITHOUT AND WITH CONTRAST 04/24/2018 7:26 pm: TECHNIQUE: CTA of the neck was performed with the administration of intravenous contrast. Multiplanar reformatted images are provided for review. MIP images are provided for review. Stenosis of the internal carotid arteries measured using NASCET criteria. Dose modulation, iterative reconstruction, and/or weight based adjustment of the mA/kV was utilized to reduce the radiation dose to as low as reasonably achievable.; CTA of the head/brain was performed without and with the administration of intravenous contrast. Multiplanar reformatted images are provided for review. MIP images are provided for review. Dose modulation, iterative reconstruction, and/or weight based adjustment of the mA/kV was utilized to reduce the radiation dose to as low as reasonably achievable. Noncontrast CT of the head with reconstructed 2-D images are also provided for review. COMPARISON: CT head January 22, 2006 HISTORY: ORDERING SYSTEM PROVIDED HISTORY: Dizziness/Previous stroke 75 ml of isovue 370 FINDINGS: CT HEAD: BRAIN/VENTRICLES: There is stable old infarction in the right cerebellar hemisphere. There is no evidence of acute territorial infarction. No acute intracranial hemorrhage or extraaxial fluid collection. No evidence of mass, mass effect or midline shift. No evidence of hydrocephalus. ORBITS: The visualized portion of the orbits demonstrate no acute abnormality. SINUSES: There is a retention cyst versus polyp in the left maxillary sinus. The remainder of the visualized paranasal sinuses and mastoid air cells demonstrate no acute abnormality. SOFT TISSUES/SKULL: No acute abnormality of the visualized skull or soft tissues. CTA NECK: AORTIC ARCH/ARCH VESSELS: There is a normal branch pattern of the aortic arch. No significant stenosis is seen of the innominate artery or subclavian arteries. CAROTID ARTERIES: There are artifacts through the mid to distal right common internal carotid artery. The common carotid arteries are normal in appearance without evidence of a flow limiting stenosis. The internal carotid arteries are normal in appearance without evidence of a flow limiting stenosis by NASCET criteria. No dissection or arterial injury is seen. VERTEBRAL ARTERIES: The vertebral arteries both arise from the subclavian arteries and are normal in caliber without evidence of flow limiting stenosis or dissection. SOFT TISSUES: The lung apices are clear. No superior mediastinal lymphadenopathy. There borderline sized bilateral cervical lymph nodes, likely reactive. There is mild prominence of the bilateral adenoids, palatine and lingual tonsils, likely reactive. The parotid, submandibular and thyroid glands demonstrate no acute abnormality. BONES: The visualized osseous structures appear unremarkable. CTA HEAD: ANTERIOR CIRCULATION: The internal carotid arteries are normal in course and caliber without focal stenosis. The anterior cerebral and middle cerebral arteries demonstrate no focal stenosis. POSTERIOR CIRCULATION: The posterior cerebral arteries demonstrate no focal stenosis. The vertebral and basilar arteries appear unremarkable. There is no evidence of intracranial aneurysm. CT/CT angio neck IMPRESSION: No acute intracranial abnormality. Stable old infarction in the right cerebellar hemisphere. No evidence of acute abnormality or flow-limiting stenosis in the major arteries of the head and neck. Artifacts through the mid to distal right common internal carotid artery. D/ / Devonte Fisher MD / Devonte Fisher MD Interpreting Provider: Devonte Fisher MD Consult Discharge Plan - Plan Referrals: NONE,PCP [Primary Care Provider] -
--- NOTE | 2018-04-25 15:52 | Electrocardiograph Report ---
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
--- NOTE | 2018-04-25 15:57 | Electrocardiograph Report ---
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
--- NOTE | 2018-04-25 16:47 | Oncology Inp Consult Note ---
Date of Encounter: 04/25/18 Time of Encounter: 16:47 Assessment and Plan (1) Dizziness Status: Acute Assessment and plan: Her symptoms sound more like vertigo. There is not much change from lying down to sitting to standing. Reviewed neurology notes. Benign positional vertigo is certainly a possibility. MRI brain 04/24/2018 showed no acute findings. Chronic appearing encephalomalacia within medial aspect of the inferior right cerebellum. Right cerebellum is smaller than the left EKG showed bradycardia. She does have low voltage across the chest leads. Echocardiogram did not show any pericardial effusion (2) Recurrent deep vein thrombosis (DVT) Status: Chronic Assessment and plan: She had 3 episodes of venous thrombosis last one about 5 years ago. On questioning the looks more like superficial thrombophlebitis than DVT and she was never anticoagulated. Currently on aspirin 81 mg a day and heparin 5000 units subcutaneous twice a day we will continue that. Do not see a reason for full anticoagulation at this time. Agree with hypercoagulable workup and we will add lupus anticoagulant. Smoking is definitely a risk factor and also obesity. Strongly advised to loose weight. She has history of elevated white count since a teenager. Smoking certainly can contribute to this elevated neutrophil. Currently neutrophils are normal and CBC unremarkable. We will continue to follow counts as an outpatient (3) Type 2 diabetes mellitus Status: Chronic Assessment and plan: Her blood glucose has been around 200-250 since 2015. She does not have insurance and she is not on any medication for diabetes. Her A1c was 8.3 last year but I do not have any records at [facility]. Diabetes and treated can lead to neuropathy which she already has in the lower extremities. She may also has other neuropathy that can contribute to some of her dizziness. She also has obstructive sleep apnea. She is not using CPAP every day. Qualifiers: Diabetes mellitus intermodal dispatcher insulin use: without intermodal dispatcher use Diabetes mellitus complication status: without complication Qualified Code(s): E11.9 - Type 2 diabetes mellitus without complications - Data of Consult Patient: new to practice Requesting Physician: Negrito Osman MD Primary Care Provider: PCP NONE - Consult Narrative Reason for consult: Recurrent DVT, hypercoagulable workup History of present illness: Ms. Aguila is a 37 year old female who presents to the ER [facility] with complaints of acute onset of dizziness and ataxia. She had some symptoms off and on for 6 months which she attributed to anxiety. The current symptoms are getting worse in the last 6 days. 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 Patient states that during 06/2014 she developed acute onset of dizziness and workup at [facility] showed right cerebellar infarct. Subsequently she was transferred lto [facility] in [facility]. there, she was apparently underwent conservative treatment Hematology consult was obtained for history of stroke and recurrent venous thrombosis. Questioning she had 2 episodes in the right lower ex Mittie 1 on the left. First one was several years ago and the last one was about 5 years ago. It looks most like is superficial thrombophlebitis and she was never anticoagulated. She is been on aspirin [address] angiogram neck and head 04/24/2018 negative. Did demonstrate stable right cerebellar infarct. On 04/24/2018 PT normal INR 1.1 and PTT 33. CBC and CMP unremarkable other than poorly controlled type 2 diabetes mellitus Blood glucose ranges between 200-250. She does have right parotid enlargement. Needle biopsy right parotid 12/30/2017 showed small and large lymphocytes nonspecific. 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 The pathologist recommended open biopsy if necessary Echocardiogram 04/25/2018 showed ejection fraction 55-60%. Mild concentric LVH. No PFO EKG showed looks like sinus rhythm low voltage complexes. Nonspecific T wave changes and p-wave inversion as well. Cardiology consult may be helpful Past Med Surg Social Fam HX - Past Medical History Medical history: CVA, diabetes Additional medical history: 2014 -- cerebellar stroke. DVT x 3 Psychiatric history: anxiety, panic disorder - Past Surgical History Surgical History: orthopedic, other (carpal tunnel) Additional surgical history: carpal tunnel bilateral. D&C - Social History Smoking Status: Current every day smoker Packs per day: 2 Smokeless Tobacco Status: No Alcohol use: none Drug use: none - Family History Paternal Grandfather Living Status: Cause of : [place] Hx Family Cardiac Disorders: Yes ([place]) Father Hx Family Cardiac Disorders: Yes (CABG X4) Hx Family Neurologic Disorders: Yes (multiple CVAs) Hx Family Medical Disorders: Yes (DM) Paternal Grandmother Hx Family Medical Disorders: Yes (DM) Medications and Allergies Aspirin [Lo-Dose Aspirin EC] 81 mg PO DAILY 04/24/18 [History] Citalopram [CeleXA] 20 mg PO DAILY #30 tablet 04/26/18 [Rx] LORazepam [Ativan] 1 mg PO QID PRN 4 Days #15 tablet 04/26/18 [Rx] Allergy/AdvReac Type Severity Reaction Status Date / Time tramadol Allergy See Verified 12/07/17 18:05 Comments acetaminophen [From Percocet] AdvReac Vomiting Verified 12/07/17 18:05 hydrocodone [From Vicodin] AdvReac Vomiting Verified 12/07/17 18:05 oxycodone [From Percocet] AdvReac Vomiting Verified 12/07/17 18:05 Penicillins AdvReac Vomiting Verified 12/07/17 18:05 Review of systems: Dizziness and vertigo-type complaints. No chest pain or shortness of breath. No nausea vomiting. She does have hyperglycemia. No fever chills or weight loss. Consult Discharge Plan - Plan Referrals: Shivani Gregg MD [Non-Partnered Physician] - 05/03/18 8:30 am Prescriptions: Citalopram [CeleXA] 20 mg PO DAILY #30 tablet LORazepam [Ativan] 1 mg PO QID PRN 4 Days #15 tablet PRN Reason: Anxiety Inpatient Charges Provider: Dr. Aravind Munoz Consult - Inpatient: [id number]
[2018-04-26] MEDS: *HR* Heparin 5,000 UNIT/ML VIAL SQ SCH (05:54)
[2018-04-26] MEDS ORDERED: hydrOXYzine pamoate 25 MG CAPSULE PO PRN (06:15)
[2018-04-26 07:29] VITALS: BP 117/77
[2018-04-26] MEDS ORDERED: *HR* LORazepam 1 MG TABLET PO PRN (08:49)
--- NOTE | 2018-04-26 08:54 | Discharge Summary ---
- NOTES TO OUTPATIENT PROVIDER Notes to Outpatient Provider: f/u with PCP within a week. f/u with Hematology within a month. Orders not resulted at time of discharge: Pending orders 04/24/18 19:01 Hgb A1C Routine 04/25/18 06:00 ECG 12 lead ECG [ECG] AM 0600 04/25/18 09:40 Antithrombin III, Activity Routine Factor V Leiden Routine Homocysteine Routine Protein C, Functional Routine Protein S, Functional Routine Prothrombin [id number] Mutation Routine 04/26/18 03:27 Lupus Anticoagulant Panel AM 0400 Date of Encounter: 04/26/18 Time of Encounter: 08:52 - Discharge Diagnosis (1) Dizziness Priority: Primary Status: Acute (2) Old cerebellar infarct without late effect Priority: Secondary Status: Chronic (3) Recurrent deep vein thrombosis (DVT) Priority: Secondary Status: Chronic (4) Type 2 diabetes mellitus Priority: Secondary Status: Chronic Qualifiers: Diabetes mellitus dedicated intermodal truck driver insulin use: without dedicated intermodal truck driver use Diabetes mellitus complication status: without complication Qualified Code(s): E11.9 - Type 2 diabetes mellitus without complications (5) DVT prophylaxis Priority: Primary Status: Acute (6) Anxiety Priority: Secondary Status: Chronic Hospital course: Ms. Aguila is a 37 year old female who presents to the ER [facility] with complaints of acute onset of dizziness and ataxia. Symptoms started roughly 6-7 days ago. She initially thought this was due to her anxiety and was hopeful that symptoms would resolve. However, symptoms persisted and so she came to ER for further evaluation. She does have history of an old cerebellar stroke, and she did state that her symptoms were similar to her stroke 3 years ago. She states these symptoms are not nearly as severe as they were when she first had her stroke in 2014. She does suffer from anxiety and firmly believes her symptoms were anxiety in nature this current episode. However, symptoms did not improve and persisted, and she then became worried about further extension of an old stroke. She therefore came to the hospital [facility]. She is type II diabetic but has not been any medication for quite some time due to lack of insurance coverage and inability to afford her medication. He glucose in the ER was 261. She denies any hypoglycemic episodes. Upon further questioning, patient states she has had 3 prior episodes of DVT several years ago. Last one was about 5 years ago. Furthermore, her father had recurrent strokes as well. She also smokes. As such, she has multiple risk factors for strokes. I inquired about her DVT history and if she has ever had any kind of hypercoagulable workup. She has never seen a coordinator of health services in consultation and denies any prior hypercoagulable workup. Regarding her cerebellar stroke, she was life-flighted from our ER to [facility] in [place] in 2014 when that occurred. She does not recall much of that hospital stay. MRI of brain showed no acute CVA, CTA of head and neck were unremarkable. Patient also had echocardiogram which showed normal ejection fraction, normal LV function, and no PFO. Neurology was consulted, patient symptoms is less likely related to any neurological disorder, outpatient follow-up with ENT was recommended. Patient also has history of anxiety and was untreated, she was prescribed with Lexapro in the past but has not taken because of insurance issues. I will start patient on Celexa because it is more affordable for the patient, Ativan as needed also will give to the patient. Patient was instructed to follow-up with PCP, and Hematology for hypercoagulation workup results. Discharge discussed with: patient, family Time spent discussing smoking cessation with patient: more than 10 minutes - Time Spent with Patient Total time spent providing and/or coordinating discharge services: 35 mins. Greater than 30 minutes - Discharge Medications Prescriptions: Citalopram [CeleXA] 20 mg PO DAILY #30 tablet LORazepam [Ativan] 1 mg PO QID PRN 4 Days #15 tablet PRN Reason: Anxiety Home Medications: Aspirin [Lo-Dose Aspirin EC] 81 mg PO DAILY 04/24/18 [History] Citalopram [CeleXA] 20 mg PO DAILY #30 tablet 04/26/18 [Rx] LORazepam [Ativan] 1 mg PO QID PRN 4 Days #15 tablet 04/26/18 [Rx] Allergies/Adverse Reactions: Allergy/AdvReac Type Severity Reaction Status Date / Time tramadol Allergy See Verified 12/07/17 18:05 Comments acetaminophen [From Percocet] AdvReac Vomiting Verified 12/07/17 18:05 hydrocodone [From Vicodin] AdvReac Vomiting Verified 12/07/17 18:05 oxycodone [From Percocet] AdvReac Vomiting Verified 12/07/17 18:05 Penicillins AdvReac Vomiting Verified 12/07/17 18:05 Date of admission: 04/24/18 20:31 Primary care physician: PCP NONE Consults: 04/24/18 23:28 Consult to Neurology [CONS] Routine Consulting Provider: Neurology [facility] Reason for Consult: dizziness, ataxia; old cerebellar stroke Call Completed: Yes 04/24/18 23:34 Consult to Oncology Hematology [CONS] Routine Consulting Provider: Buddy Munoz Reason for Consult: h/o recvurrent DVT; premature stroke Call Completed: No Anticipated date of discharge: 04/26/18 - Constitutional Vitals: Temp Pulse Resp BP Pulse Ox 98.2 F 76 16 117/77 95 04/26/18 07:25 04/26/18 07:25 04/26/18 07:25 04/26/18 07:25 04/26/18 07:25 General appearance: Present: cooperative, A&O X 3, pleasant, no acute distress, answers questions appropriately Exam: PHYSICAL EXAMINATION: GENERAL APPEARANCE: The patient is alert, oriented and in no acute distress. HEENT: Head is normocephalic. The sinuses are nontender. Pupils are equal and reactive. The nares are patent. Oropharynx clear without lesions. NECK: Supple without lymphadenopathy. HEART: Regular rate and rhythm. LUNGS: No crackles or wheezes are heard. ABDOMEN: Soft, nontender, nondistended with good bowel sounds heard. Inguinal area is normal. EXTREMITIES: Without cyanosis, clubbing or edema. NEUROLOGICAL: Gross nonfocal. SKIN: Warm and dry without any rash. - Patient Status Disposition: Home, Self-Care Condition: Fair Functional capacity at discharge: independent ambulation Overall status at discharge: patient is progressing back to baseline - Discharge Instructions Follow Up With: Shivani Gregg MD [Non-Partnered Physician] - 05/03/18 8:30 am - Diet and Activity Activity: increase activity as tolerated Diet: low fat, low cholesterol, low salt diet
[2018-04-26] MEDS: Aspirin Enteric Coated 81 MG Tablet PO SCH (08:55)
[2018-04-26] MEDS: Insulin LISPRO 300 UNITS/3 ML VIAL SQ SCH (08:56)
[2018-04-26 09:14] LABS: Estimated Average Glucose 206 mg/dl; Hemoglobin A1C 8.8 %
--- NOTE | 2018-04-26 09:41 | Neurology Progress Note ---
Addendum entered and electronically signed by Anne Burns MD 04/26/18 19:08: Patient seen and examined. I discussed the case with Cecilhector Page and outline the assessment and plan below. her MRI of brain returned negative for new stroke. She has persistent dizziness, lightheadedness as a subjective feeling but her neurological examination remains non focal. Not be able to attribute her clinical symptoms to a primary neurological disorder. The symptoms currently does not seem to cause significant limitation to her activity, namely her walking and motor activity. Prognosis of such symptoms is fair. She is advised to follow up with ENT for VNG/hearing testing. Use of Meclizine for such presentation is of unknown value and not recommended. Original Note: Date of Encounter: 04/26/18 Time of Encounter: 09:38 Assessment and Plan (1) Dizziness Current Visit: Yes Status: Acute Presented with lightheadedness and dizziness which has been ongoing x6 days; acute CVA ruled out Neurology has been consulted to evaluate for cause of dizziness; she has a h/o CVA, uncontrolled DM, DVTs, 2 PPD smoker and obesity. Per my exam the dizziness does not appear to be of central etiology with a non focal, non lateralizing neuro exam and no neuro deficits. She does note that the dizziness is worse with position change and head movement. Consider BPPV or possible vestibular dysfunction. One could consider a cardiac etiology for her dizziness. However, per my review of telemetry she has maintained sinus rhythm and has not had any arrhythmias. CTA of the head and brain revealed no significant abnormality. MRI brain with no acute findings. 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 Right cerebellum smaller than left. At this time I am recommending consultation with ENT to test for possible vestibular dysfunction. Given her history and comorbidities I recommend with continuation of daily 81mg ASA, tobacco cessation, dietary changes, weight loss and blood glucose control. Subjective Principal diagnosis: Dizziness Interval history: The patient was seen and examined at bedside today. No changes in her condition overnight and she remains stable. She has no new neurological complaints. I have discussed the finding of her brain MRI and head and neck CTA. Additionally, discussed plan of care and the need for consultation with ENT for evaluation of a possible inner ear etiology causing her dizziness/lightheadedness. She denies any further questions or concerns at this time. Objective - Constitutional Vitals: Temp Pulse Resp BP Pulse Ox 98.2 F 76 16 117/77 95 04/26/18 07:25 04/26/18 07:25 04/26/18 07:25 04/26/18 07:25 04/26/18 08:50 Exam: Examination: General Examination: *GENERAL APPEARANCE OF PATIENT obese female who appears older than stated age *EYES: pupils equal, round, reactive to light and accommodation, conjunctiva clear without masses or ulcerations, fundi normal. *CARDIOVASCULAR RRR, S1, S2, no mumurs, rubs, or gallops, no peripheral edema, distal temperature normal, dorsalis pedis pulses normal. Musculoskeletal: *GAIT AND STATION normal, with normal Romberg testing, no abnormalities such as broad base gait or spasticity *ASSESSMENT OF MUSCLE STRENGTH IN THE UPPER AND LOWER EXTREMITIES bilateral deltoid, bicep, tricep, human resource analyst strength, hip flexors ,anterior tibialis, dorsoflexion of the foot 5/5 *MUSCLE TONE IN THE UPPER AND LOWER EXTREMITIES normal. No abnormal movements, fasciculations or atrophy identified. Neurological: *ORIENTATION to person, situation, time and place *RECURRENT AND REMOTE MEMORY intact *ATTENTION AND CONCENTRATION are normal *LANGUAGE FUNCTION no significant aphasia or dysarthia was noted. *FUND OF KNOWLEDGE aware of current events, past history, vocabulary *MENTAL attention span and concentration normal. *CN II optic fundi were normal, no papilledema noted. *CN III,IV, PERRLA extraocular eye movements were full, no nystagmus and no ptosis noted. *CN V shows normal sensation and jaw opens symmetrically. *CN VII shows normal facial movement symmetrically, upper and lower bilaterally. *CN VIII shows no significant hearing loss on examination in the office. *CN IX,,X palate elevated symmetrically and normal gag reflex was noted. *CN XI normal strength in the sternocleidomastoid muscles, symmetrical shoulder shrugging. *CN XII tongue protruded in the midline, with normal strength and movement. *SENSORY EXAMINATION pinprick sensation intact, and light touch(vibration sense). *REFLEXES: deep tendon reflexes were normal and symmetrical , grade 2/4 diffusely, no pathological reflexes were noted. *CEREBELLAR TESTING normal finger to nose, heel/knee/lion, and tandem walk. *PAIN LEVEL 0 - Neurological Exam Motor Examination: Present: full strength in all major muscle groups Motor examination - left side: 08/01: deltoids, biceps, triceps, wrist flexion, wrist extension, hip flexors, human resource analyst, quadriceps, tibialis Anterior, toe extension (EHL), plantarflexion Sensation intact: Present: intact Posture: Present: other (NOne) Reflex and gait examination: intact Mental Status Examination: Present: awake, alert, oriented to person, oriented to place, oriented to time, follows commands appropriately, answers questions appropriately, no agnosia, no aphasia, no aproxia Cranial nerve examination: Present: PERRL, EOMI, visual feliz intact, corneal reflexes brisk symmetrically, sensory to face intact, mastication intact, no fac ial asymmetry is present, no dysarthria, hearing is intact symmetrically, soft palate elevates bilaterally upon phonation, gag reflex intact, flexes SCM and trapezius muscles symmetrically with full power, tongue protrudes midline, no atrophy or facial fasiculations present Cerebellar examination: Present: no dysmetria, performs finger to nose and heel to lion symmetrically without ataxia, no gait ataxia, no truncal ataxia, no difficulty with rapid alternating movements Results - Laboratory Findings CBC and BMP: 04/25/18 04:32 04/25/18 04:32 Abnormal lab findings: Abnormal lab results VBG pO2 78 mmHg (25-50) H 04/24/18 19:26 Glucose 149 mg/dL (70-105) H 04/25/18 04:32 POC Glucose 129 mg/dL (70-99) H 04/25/18 20:14 Hemoglobin A1c 8.8 % (-5.6) H 04/24/18 19:01 AST 11 Units/L (13-39) L 04/25/18 04:32 Triglycerides 152 mg/dL (< 150) H 04/25/18 04:32 HDL Cholesterol 30 mg/dL (40-59) L 04/25/18 04:32 Ur Specific [place] > 1.030 (1.010-1.025) H 04/24/18 19:38 Urine Glucose (UA) >=1000 mg/dL (Normal) H 04/24/18 19:38 Consult Discharge Plan - Plan Referrals: Shivani Gregg MD [Non-Partnered Physician] - 05/03/18 8:30 am Prescriptions: Citalopram [CeleXA] 20 mg PO DAILY #30 tablet LORazepam [Ativan] 1 mg PO QID PRN 4 Days #15 tablet PRN Reason: Anxiety
[2018-04-28 18:54] LABS: APTT (LE Anticoag) 43 sec (32-48); Diluted Russell Viper Venom 30 sec (33-44); PT (LE-Anticoag) 13.1 sec (12.0-15.5)
== END 2018-04-26 13:45 | disposition home or self-care (01) ==
LOC: 3BNU 18:15 → EMEROOARM 18:15 → 3BNU 21:11
PROVIDERS: ADMIT Pediatrics; ATTEND Pediatrics